=== PATIENT | female | born 1995 | race Caucasian/White ===

== ENCOUNTER 2018-07-21 16:34 | Inpatient (IN) | payer MEDICAID ==
[~2018-07-21 16:34] MED LIST: OXYTOCIN 30 UNITS/LR 500 ML BAG IV
[2018-07-21] MEDS ORDERED: OXYTOCIN 30 UNITS/LR 500 ML IV ×2 (18:00→20:00)
[2018-07-21] MEDS ORDERED: METHYLERGONOVINE 0.2 MG INJ IM (18:00)
[2018-07-21] MEDS ORDERED: MISOPROSTOL 200 MCG TAB PR (18:00)
[2018-07-21] MEDS ORDERED: CEFAZOLIN 2 GM/50 ML (PMX) 50 ML IVPB (18:00)
[2018-07-21] MEDS ORDERED: CARBOPROST 250 MCG INJ IM (18:00)
[2018-07-21 18:28] LABS: ADD MAN DIFF? NO
[2018-07-21 18:31] LABS: WHITE BLOOD COUNT 10.9 10^3/ul (4.8-10.8)
[2018-07-21 18:31] LABS: BASOPHIL # 0.1 10^3/ul (0.0-0.1); BASOPHILS % 0.9 % (0.0-2.0); EOSINOPHILS # 0.1 10^3/ul (0.0-0.5); EOSINOPHILS % 0.9 % (0.0-7.0); HEMATOCRIT 37.9 % (37.0-47.0); HEMOGLOBIN 12.3 g/dl (12.0-16.0); LYMPHOCYTES % 27.5 % (15.0-51.0); MEAN CORPUSCULAR HEMOGLOBIN 25.6 pg (29.0-33.0); MEAN CORPUSCULAR HGB CONC 32.5 g/dl (32.0-37.0); MEAN CORPUSCULAR VOLUME 78.8 fl (82.0-101.0); MEAN PLATELET VOLUME 12.8 fl (7.4-10.4); MONOCYTE # 0.7 10^3/ul (0.3-0.9); MONOCYTES % 6.3 % (0.0-11.0); NEUTROPHIL # 6.9 10^3/ul (1.6-7.5); NEUTROPHILS % 63.5 % (39.0-77.0); NUCLEATED RED BLOOD CELLS% 0.2 /100WBC (0.0-0.0); PLATELET COUNT 182 10^3/UL (140-415); RED BLOOD COUNT 4.81 10^6/ul (4.20-5.40); RED CELL DISTRIBUTION WIDTH 14.1 % (11.5-14.5)
[2018-07-21] MEDS: LACTATED RINGER'S 1,000 ML IV (18:42)
[2018-07-21 18:54] LABS: PARTIAL THROMBOPLASTIN TIME 27.2 Sec (23.0-35.0)
[2018-07-21 19:04] LABS: PROTIME 12.3 Sec (11.9-14.9)
[2018-07-21] MEDS ORDERED: morphine SULFATE/PF (10 MG/10 ML) INJ (20:12)
[2018-07-21] MEDS ORDERED: OXYTOCIN 10 UNIT INJ (20:29)
[2018-07-21] MEDS ORDERED: ONDANSETRON 4 MG INJ (20:29)
[2018-07-21 20:34] LABS: HEPATITIS B SURFACE ANTIGEN NEGATIVE (NEGATIVE)
[2018-07-21] MEDS ORDERED: FENTAnyl 50 MCG/ML VIAL (20:58)
[2018-07-21] MEDS: OXYTOCIN 30 UNITS/LR 500 ML IV ×2 (21:46→21:47)
[2018-07-21] MEDS ORDERED: morphine 2 MG INJ IV (22:30)
[2018-07-21] MEDS ORDERED: ONDANSETRON 4 MG INJ IV (22:30)
[2018-07-21] MEDS ORDERED: DIPHENHYDRAMINE 50 MG INJ IV (22:30)
[2018-07-21] MEDS ORDERED: NALOXONE (0.4 MG/ML) INJ IV (22:30)
[2018-07-22] MEDS: DEXTROSE 5%-LR 1,000 ML IV ×3 (00:20→16:20)
[2018-07-22] MEDS ORDERED: LANOLIN HPA 1 PKT TOP (00:30)
[2018-07-22] MEDS ORDERED: METHYLERGONOVINE 0.2 MG INJ IM (00:30)
[2018-07-22] MEDS ORDERED: CARBOPROST 250 MCG INJ IM (00:30)
[2018-07-22] MEDS ORDERED: MISOPROSTOL 200 MCG TAB PR (00:30)
[2018-07-22] MEDS ORDERED: METHYLERGONOVINE 0.2 MG TAB PO (00:30)
[2018-07-22] MEDS ORDERED: OXYTOCIN 30 UNITS/LR 500 ML IV (00:30)
[2018-07-22] MEDS: KETOROLAC 30 MG INJ IV ×2 (00:41→11:32)
[2018-07-22] MEDS: OXYTOCIN 30 UNITS/LR 500 ML IV (00:48)
[2018-07-22] MEDS: LACTATED RINGER'S 1,000 ML IV ×2 (01:35→10:07)
[2018-07-22 08:01] LABS: ADD MAN DIFF? NO
[2018-07-22 08:06] LABS: ABNORMAL IP MESSAGE 1; BASOPHIL # 0.1 10^3/ul (0.0-0.1); BASOPHILS % 0.5 % (0.0-2.0); EOSINOPHILS # 0.1 10^3/ul (0.0-0.5); EOSINOPHILS % 0.5 % (0.0-7.0); HEMATOCRIT 34.4 % (37.0-47.0); HEMOGLOBIN 11.2 g/dl (12.0-16.0); LYMPHOCYTES # 2.3 10^3/ul (0.8-2.9); LYMPHOCYTES % 12.3 % (15.0-51.0); MEAN CORPUSCULAR HEMOGLOBIN 25.7 pg (29.0-33.0); MEAN CORPUSCULAR HGB CONC 32.6 g/dl (32.0-37.0); MEAN CORPUSCULAR VOLUME 78.9 fl (82.0-101.0); MEAN PLATELET VOLUME 13.1 fl (7.4-10.4); MONOCYTE # 0.8 10^3/ul (0.3-0.9); MONOCYTES % 4.5 % (0.0-11.0); NEUTROPHIL # 14.8 10^3/ul (1.6-7.5); NEUTROPHILS % 81.3 % (39.0-77.0); PLATELET COUNT 134 10^3/UL (140-415); RED BLOOD COUNT 4.36 10^6/ul (4.20-5.40); RED CELL DISTRIBUTION WIDTH 13.9 % (11.5-14.5)
[2018-07-22 08:06] LABS: WHITE BLOOD COUNT 18.2 10^3/ul (4.8-10.8)
[2018-07-22] MEDS: SENNA/DOCUSATE NA (8.6MG/50MG) TAB PO ×2 (08:08→20:34)
[2018-07-22 08:10] LABS: POSITIVE DIFF @See below
[2018-07-22] MEDS ORDERED: DIPHTH/TET/ACEL PERTUSS (ADULT) 0.5 ML VIAL IM* (11:00)
[2018-07-22] MEDS ORDERED: OXYCODONE/ACETAMINOPHEN (5/325) TAB PO (17:30)
[2018-07-22] MEDS: OXYCODONE/ACETAMINOPHEN (5/325) TAB PO (17:35)
[2018-07-22 20:39] LABS: RAPID PLASMA REAGIN NONREACTIVE (NR)
[2018-07-22] MEDS: IBUPROFEN 800 MG TAB PO (22:24)
[2018-07-22] MEDS: HYDROCODONE/APAP (5/325) TAB PO (22:24)
[2018-07-23] MEDS: IBUPROFEN 800 MG TAB PO ×3 (06:06→21:33)
[2018-07-23] MEDS: HYDROCODONE/APAP (5/325) TAB PO ×3 (06:07→21:33)
[2018-07-23] MEDS: SENNA/DOCUSATE NA (8.6MG/50MG) TAB PO ×2 (08:21→21:34)
[2018-07-24] MEDS: HYDROCODONE/APAP (5/325) TAB PO ×3 (05:20→14:24)
[2018-07-24] MEDS: IBUPROFEN 800 MG TAB PO ×2 (05:20→13:09)
[2018-07-24] MEDS: MEASLES,MUMPS,RUBELLA VACCINE INJ SC* (08:15)
[2018-07-24] MEDS: SENNA/DOCUSATE NA (8.6MG/50MG) TAB PO (08:41)
[2018-07-24] MEDS: DIPHTH/TET/ACEL PERTUSS (ADULT) 0.5 ML VIAL IM* (10:16)
== END 2018-07-24 17:40 | disposition home or self-care (01) | DRG 788 ==
LOC: OBT 16:34 → PP1 07-22 00:30 → L-D 16:37 → OBT 17:30 → L-D 17:30
PROVIDERS: Obstetrics & Gynecology
PROC: 10D00Z1 Extraction of Products of Conception, Low, Open Approach (ICD-10-PCS; principal; 2018-07-21 20:15)
DX: O34.219 Maternal care for unspecified type scar from previous cesarean delivery (principal); Z3A.37 37 weeks gestation of pregnancy; Z37.0 Single live birth; Z23 Encounter for immunization; Z87.59 Personal history of other complications of pregnancy, childbirth and the puerperium
CPT/HCPCS: 85025; 85610; 85730; 86592; 86850; 86900; 86901; 87340; 90686; 90715; 99464